=== PATIENT | male | born 1940 | race Caucasian/White ===

== ENCOUNTER → 2023-06-30 | Outpatient (CLI) | payer MEDICARE, OTHER ==
[~2023-06-30] MED LIST: LIDOCAINE 1% MDV 20ML VIAL As Ordered ONE
[2023-06-30 14:03] VITALS: BP 168/77; TEMP 98.6; O2SAT 99
== END ==
LOC: M IRPRO 13:45
PROVIDERS: ATTEND Otolaryngology
DX: D49.0 Neoplasm of unspecified behavior of digestive system (principal)

== ENCOUNTER → 2023-09-14 | Outpatient (CLI) | payer OTHER | LOC: M RAD 10:06 | PROVIDERS: ATTEND Internal Medicine Cardiovascular Disease | DX: I71.40 Abdominal aortic aneurysm, without rupture, unspecified (principal) ==